=== PATIENT | male | born 1945 | race Caucasian/White ===

== ENCOUNTER → 2019-10-09 | Outpatient (CLI) | payer MEDICARE, OTHER ==
[~2019-10-09] MED LIST: ALBU8.5H2 IH; AMLO10TA82 PO; ASCO500T20 PO; ASP81CT PO; C250T PO; FURO40TA4 PO; GEMF600T3 PO; KCL10CCR PO; LVT.05T PO; METO25TA PO; MULT1CAP27 PO; PNT40TEC PO; RT-COMBINH IH; SIMV40TA4 PO; SIMV80TA3 PO; VITA400T9 PO
== END ==
LOC: WOUNDCARE 08:43
PROVIDERS: ATTEND Surgery
DX: E11.622 Type 2 diabetes mellitus with other skin ulcer (principal); L97.211 Non-pressure chronic ulcer of right calf limited to breakdown of skin; I87.331 Chronic venous hypertension (idiopathic) with ulcer and inflammation of right lower extremity; I70.232 Atherosclerosis of native arteries of right leg with ulceration of calf; T65.222A Toxic effect of tobacco cigarettes, intentional self-harm, initial encounter; F17.218 Nicotine dependence, cigarettes, with other nicotine-induced disorders; E66.01 Morbid (severe) obesity due to excess calories; Z79.01 Long term (current) use of anticoagulants; J44.9 Chronic obstructive pulmonary disease, unspecified; I10 Essential (primary) hypertension; E11.40 Type 2 diabetes mellitus with diabetic neuropathy, unspecified; Z92.3 Personal history of irradiation; Z86.718 Personal history of other venous thrombosis and embolism
CPT/HCPCS: 99203

== ENCOUNTER → 2019-10-17 | Outpatient (CLI) | payer MEDICARE, OTHER | LOC: WOUNDCARE 08:19 | PROVIDERS: ATTEND Surgery | DX: E11.622 Type 2 diabetes mellitus with other skin ulcer (principal); L97.211 Non-pressure chronic ulcer of right calf limited to breakdown of skin; I87.331 Chronic venous hypertension (idiopathic) with ulcer and inflammation of right lower extremity; I70.232 Atherosclerosis of native arteries of right leg with ulceration of calf; T65.222A Toxic effect of tobacco cigarettes, intentional self-harm, initial encounter; F17.218 Nicotine dependence, cigarettes, with other nicotine-induced disorders; E66.01 Morbid (severe) obesity due to excess calories; Z68.33 Body mass index [BMI] 33.0-33.9, adult | CPT/HCPCS: 99212 ==

== ENCOUNTER → 2019-12-07 | Outpatient (CLI) | payer MEDICARE, OTHER ==
[~2019-12-07] VITALS: Ht 172 cm; Wt 104.0 kg
[~2019-12-07] MED LIST changes: +CATHETER FLUSH 10 ML SYR IV PRN; +REGADENOSON 0.4 MG/5 ML SYR (LEXISCAN) IV ONE
[2019-12-07 12:17] VITALS: BP 166/86
--- NOTE | 2019-12-07 15:13 | Cardiology Stress Test Report ---
Stress Test Report Type of NM Stress Test: Test Type: LEXISCAN 0.4MG/5ML Date of Procedure/Referring: Date of Procedure: Dec 07, 2019 PCP Osvaldo Banuelos MD Admitting Physician Brittney Wolf MD Indications: Shortness of breath Baseline Heart Rate: 80 Baseline Blood Pressure: Blood Pressure Systolic: 166 Blood Pressure Diastolic: 86 Baseline EKG: Baseline EKG: Sinus rhythm Summary & Conclusion: Summary: The patient was brought to the stress lab after informed consent was taken. Stress test was performed according to the Lexiscan protocol. 0.4 mg of IV Lexiscan was given. Low-grade exercise was performed. Baseline EKG showed sinus rhythm at 80 BPM and blood pressure of 164/88 mmHg. Maximum heart rate of 91 bpm and blood pressure 161/90 mmHg. Patient did not have any chest pain, arrhythmias or ST segment changes during the stress test. 10.89 mCi of Myoview were given for rest imaging and 32.4 mCi of Myoview given for stress imaging. Transient ischemic dilatation score 1.04, EF 74 percent. Normal wall motion. Moderate size inferior/apical reversible defect. Conclusion: Pharmacological stress test was negative for ischemia. Normal LV function with no wall motion abnormalities. Likely inferior/apical ischemia. Coronary angiography is recommended. Osvaldo BANUELOS MD Dec 07, 2019 15:13
== END ==
LOC: CARD 10:46
PROVIDERS: ATTEND Internal Medicine Interventional Cardiology
DX: R06.02 Shortness of breath (principal); I10 Essential (primary) hypertension; L97.219 Non-pressure chronic ulcer of right calf with unspecified severity; E11.9 Type 2 diabetes mellitus without complications; E78.01 Familial hypercholesterolemia
CPT/HCPCS: 78452; 93017; A9502

== ENCOUNTER 2019-12-21 09:11 | Day surgery (SDC) | payer MEDICARE ==
[2019-12-21] VITALS (11 sets, daily range): BP systolic 132–159; BP diastolic 64–86
[~2019-12-21] VITALS: Ht 173 cm; Wt 102.0 kg
[~2019-12-21 09:11] MED LIST changes: -CATHETER FLUSH 10 ML SYR IV PRN; -REGADENOSON 0.4 MG/5 ML SYR (LEXISCAN) IV ONE
[2019-12-21] MEDS ORDERED: HEParin (CATH LAB) 2,000 ML IV ONE (09:24)
[2019-12-21] MEDS ORDERED: NS IV 1000 ML 1,000 ML ONE (09:24)
[2019-12-21] MEDS ORDERED: LIDOCAINE 1% INJ 20 ML 20 ML VIAL ONE (09:24)
[2019-12-21] MEDS ORDERED: NS IV 1000 ML 1,000 ML IV SCH ×2 (09:30→13:31)
[2019-12-21 09:42] LABS: HEMOGLOBIN 14.5 G/DL (13.3-17.7); MEAN PLATELET VOLUME 9.2 FL (7.4-10.4); RED CELL DISTRIBUTION WIDTH 16.7 % (10.0-14.5); WHITE BLOOD COUNT 10.5 10^3/uL (4.3-11.0)
[2019-12-21] MEDS ORDERED: ATOR20TA66 PO (09:52)
[2019-12-21] MEDS ORDERED: FURO20TA4 PO (09:52)
[2019-12-21] MEDS ORDERED: LEVO75TA6 PO (09:52)
[2019-12-21] MEDS ORDERED: GLIP5TAB13 PO (09:52)
[2019-12-21] MEDS ORDERED: METO50TA7 PO (09:52)
[2019-12-21] MEDS ORDERED: NICO-588 TD (09:52)
[2019-12-21] MEDS ORDERED: BUDE0.256 IH (09:52)
[2019-12-21] MEDS ORDERED: PANT40TA2 PO (09:52)
[2019-12-21] MEDS ORDERED: LOSA100T57 PO (09:52)
[2019-12-21] MEDS ORDERED: IPRA0.2S51 IH (09:52)
[2019-12-21] MEDS ORDERED: ARFO15VI3 IH (09:52)
[2019-12-21] MEDS ORDERED: METF-399 PO (09:52)
--- OUTSIDE RECORDS SUMMARY | 2019-12-21 09:54 | XMS REPORT | Continuity of Care Document ---
Author Organization Unknown Address Unknown Phone Unavailable Allergies Active Description Code Type Severity Reaction Onset Reported/Identified Relationship to Patient Clinical Status Yes Penicillins [id number] Drug Aller gy Unknown N/A 04/18/2012 Medications There is no data. Problems Date Dx Coded Attending Type Code Diagnosis Diagnosed By 09/20/2012 Ot 185 MALIGN NEOPL PROSTATE 09/20/2012 Ot V58.0 ENCO UNTER FOR RADIOTHERAPY 12/23/2017 Ot 272.4 HYPE RLIPIDEMIA NEC/NOS 12/23/2017 Ot 185 MALIGN NEOPL PROSTATE 12/23/2017 Ot V58.0 ENCO UNTER FOR RADIOTHERAPY 09/20/2019 W E03.4 Atro phy of thyroid (acquired) [facility] 09/20/2019 W E11.65 Typ e 2 diabetes mellitus with hyperglycemia, without long-term current use of insulin [facility] 09/20/2019 W E78.2 Mixe d hyperlipidemia [facility] 09/20/2019 W I10 Essent ial (primary) hypertension [facility] 09/20/2019 W L03.115 Ce llulitis of right leg without foot [facility] 09/28/2019 W E11.65 Typ e 2 diabetes mellitus with hyperglycemia, without long-term current use of insulin [facility] 09/28/2019 W L03.115 Ce llulitis of right leg without foot [facility] 09/28/2019 W R60.0 Loca lized edema [facility] 10/11/2019 ANUPAMA MODI MD Ot E11.40 TYPE 2 DIABETES MELLITUS WITH DIABETIC N 10/11/2019 ANUPAMA MODI MD Ot E11.622 TYPE 2 DIABETES MELLITUS WITH OTHER SKIN 10/11/2019 ANUPAMA MODI MD Ot E66.01 MORBID (SEVERE) OBESITY DUE TO EXCESS CA 10/11/2019 ANUPAMA MODI MD Ot F17.218 NICOTINE DEPENDENCE, CIGARETTES, W OTH D 10/11/2019 ANUPAMA MODI MD Ot I10 ESSENTIAL (PRIMARY) HYPERTENSION 10/11/2019 ANUPAMA MODI MD, Ot I70.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 W UL 10/11/2019 ANUPAMA MODI MD, Ot I87.331 CHRONIC VENOUS HTN W ULCER AND INFLAMMAT 10/11/2019 ANUPAMA MODI MD, Ot J44 .9 CHRONIC OBSTRUCTIVE PULMONARY DISEASE, U 10/11/2019 ANUPAMA MODI MD, Ot L97.211 NON-PRS CHRONIC ULCER OF RIGHT CALF LIMI 10/11/2019 ANUPAMA MODI MD, Ot T65.222A TOXIC EFFECT OF TOBACCO CIGARETTES, SELF 10/11/2019 ANUPAMA MODI MD, Ot 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 10/11/2019 ANUPAMA MODI MD, Ot Z86.718 PERSONAL HISTORY OF OTHER VENOUS THROMBO 10/11/2019 ANUPAMA MODI MD, Ot Z92 .3 PERSONAL HISTORY OF IRRADIATION 10/19/2019 W E11.65 Typ e 2 diabetes mellitus with hyperglycemia, without long-term current use of insulin [facility] 10/19/2019 W I10 Essent ial (primary) hypertension [facility] 10/19/2019 W J44.9 COPD (chronic obstructive pulmonary disease) [facility] 10/19/2019 W R60.0 Loca lized edema [facility] 11/01/2019 ANUPAMA MODI MD Ot E11.40 TYPE 2 DIABETES MELLITUS WITH DIABETIC N 11/01/2019 ANUPAMA MODI MD, Ot E11.622 TYPE 2 DIABETES MELLITUS WITH OTHER SKIN 11/01/2019 ANUPAMA MODI MD, Ot E66.01 MORBID (SEVERE) OBESITY DUE TO EXCESS CA 11/01/2019 ANUPAMA MODI MD, Ot F17.218 NICOTINE DEPENDENCE, CIGARETTES, W OTH D 11/01/2019 ANUPAMA MODI MD, Ot I10 ESSENTIAL (PRIMARY) HYPERTENSION 11/01/2019 ANUPAMA MODI MD, Ot I70.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 W UL 11/01/2019 ANUPAMA MODI MD, Ot I87.331 CHRONIC VENOUS HTN W ULCER AND INFLAMMAT 11/01/2019 ANUPAMA MODI MD, Ot J44 .9 CHRONIC OBSTRUCTIVE PULMONARY DISEASE, U 11/01/2019 ANUPAMA MODI MD, Ot L97.211 NON-PRS CHRONIC ULCER OF RIGHT CALF LIMI 11/01/2019 ANUPAMA MODI MD, Ot T65.222A TOXIC EFFECT OF TOBACCO CIGARETTES, SELF 11/01/2019 ANUPAMA MODI MD, Ot Z79.01 SHELTER (CURRENT) USE OF ANTICOAGULANT 11/01/2019 ANUPAMA MODI MD, Ot Z86.718 PERSONAL HISTORY OF OTHER VENOUS THROMBO 11/01/2019 ANUPAMA MODI MD, Ot Z92 .3 PERSONAL HISTORY OF IRRADIATION 11/13/2019 ANUPAMA MODI MD, Ot E11.622 TYPE 2 DIABETES MELLITUS WITH OTHER SKIN 11/13/2019 ANUPAMA MODI MD, Ot E66.01 MORBID (SEVERE) OBESITY DUE TO EXCESS CA 11/13/2019 ANUPAMA MODI MD, Ot F17.218 NICOTINE DEPENDENCE, CIGARETTES, W OTH D 11/13/2019 ANUPAMA MODI MD, Ot I70.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 W UL 11/13/2019 ANUPAMA MODI MD, Ot I87.331 CHRONIC VENOUS HTN W ULCER AND INFLAMMAT 11/13/2019 ANUPAMA MODI MD, Ot L97.211 NON-PRS CHRONIC ULCER OF RIGHT CALF LIMI 11/13/2019 ANUPAMA MODI MD, Ot T65.222A TOXIC EFFECT OF TOBACCO CIGARETTES, SELF 11/13/2019 ANUPAMA MODI MD, Ot Z68.33 BODY MASS INDEX (BMI) 33.0-33.9, ADULT 12/11/2019 Osvaldo BOWMAN MD Ot E11 .9 TYPE 2 DIABETES MELLITUS WITHOUT COMPLIC 12/11/2019 Osvaldo BOWMAN MD, Ot E78.01 FAMILIAL HYPERCHOLESTEROLEMIA 12/11/2019 Osvaldo BOWMAN MD Ot I10 ESSENTIAL (PRIMARY) HYPERTENSION 12/11/2019 Osvaldo BOWMAN MD, Ot L97.219 NON-PRESSURE CHRONIC ULCER OF RIGHT CALF 12/11/2019 Osvaldo BOWMAN MD, Ot R06.02 SHORTNESS OF BREATH Procedures There is no data. Results There is no data. Encounters ACCT No. Visit Date/Time Discharge Status Pt. Type Provider Facility Loc./Unit Complaint [id number] 03/15/2019 10:14:35 03/15/2019 23:59:5 9 CLS Outpatient [id number] 12/07/2019 10:46:00 020 23:59:59 CLS Outpatient Osvaldo BOWMAN MD [facility] CARD SOB [id number] 10/17/2019 08:19:00 23:59:59 CLS Outpatient ANUPAMA MODI MD [facility] WOUNDCARE [id number] 10/09/2019 08:43:00 23:59:59 CLS Outpatient ANUPAMA MODI MD [id number] 12/21/2019 09:11:[address] Outpatient Osvaldo BOWMAN MD [facility] [id number] 10/05/2019 08:33:00 Document Registration [id number] 09/21/2012 10:21:00 Document Registration [id number] 08/15/2012 08:44:00 Document Registration [id number] 08/08/2012 09:06:00 Document Registration
[2019-12-21 09:57] LABS: INR 0.9 (0.8-1.4); PROTHROMBIN TIME PATIENT 12.7 SEC (12.2-14.7)
[2019-12-21 10:03] LABS: ALBUMIN 4.2 GM/DL (3.2-4.5); BILIRUBIN,TOTAL 0.5 MG/DL (0.1-1.0); CALCIUM 9.2 MG/DL (8.5-10.1); CREATININE SERUM 1.38 MG/DL (0.60-1.30); POTASSIUM 3.8 MMOL/L (3.6-5.0); TOTAL PROTEIN 7.2 GM/DL (6.4-8.2)
[2019-12-21] MEDS ORDERED: MIDAZOLAM 5 MG/5 ML (VERSED) VIAL ONE (12:39)
[2019-12-21] MEDS ORDERED: VERAPAMIL 5 MG/2 ML (CALAN) VIAL IV ONE (12:40)
[2019-12-21] MEDS ORDERED: fentaNYL INJECTION 100 MCG/2 ML AMP ONE (12:40)
[2019-12-21] MEDS ORDERED: NITRO DRIP 25000 MCG/D5W 250 ML IV ONE (12:40)
[2019-12-21] MEDS ORDERED: HEParin 1000 UNIT/ML (10ML VIAL) FOR BOLUS ONE (12:40)
--- NOTE | 2019-12-21 13:29 | Cardiac Procedure Note-CS/ASA ---
Pre-Procedure Note Pre-Op Procedure Note H&P Reviewed The H&P was reviewed, patient examined and no changes noted. Date H&P Reviewed: Dec 21, 2019 Time H&P Reviewed: 12:00 Conscious Sedation Pre-Proced Time 12:00 ASA Score 3 For ASA 3 and 4: Consider anesthesia and medical clearance. Also, for patients with a history of failed moderate sedation consider anesthesia. Airway Lungs Heart ASA score ASA 1: a normal healthy patient ASA 2: a patient with a mild systemic disease (mid diabetes, controlled hypertension, obesity ASA 3: a patient with a severe systemic disease that limits activity (angina, COPD, prior Myocardial infarction) ASA 4: a patient with an incapacitating disease that is a constant threat to life (CHF, renal failure) ASA 5: a moribund patient not expected to survive 24 hrs. (ruptured aneurysm) ASA 6: a declared brain- patient whose organs are being harvested. For emergent operations, add the letter E after the classification Mallampati Classification Grade 1 Sedation Plan Analgesia, Amnesia, Plan communicated to team members, Discussed options with patient/fam, Discussed risks with patient/fam The patient is an appropriate candidate to undergo the planned procedure, sedation, and anesthesia. The patient immediately re-assessed prior to indication. Osvaldo BOWMAN MD Dec 21, 2019 13:29
--- NOTE | 2019-12-21 13:31 | Coronary Angiography Report ---
Coronary Angiography Report DATE OF PROCEDURE: 12/21/19 INDICATION: Chest pain, abnormal nuclear stress test. PREOPERATIVE DIAGNOSIS: Chest pain, abnormal nuclear stress test. POSTOPERATIVE DIAGNOSIS: Patent epicardial coronary arteries. HISTORY: This is a 74-year-old gentleman with chest pain and abnormal nuclear stress test. Therefore, the patient was scheduled for coronary angiography. PROCEDURES PERFORMED: 1.Coronary angiography. 2.Left heart catheterization. 3. Aortic arch angiogram: Medical necessity: To rule out aortic aneurysm or dissection in a patient with chest pain and patent epicardial coronary arteries. COMPLICATIONS: None. SPECIMENS: None. ESTIMATED BLOOD LOSS: 10 mL ANESTHESIA: Conscious sedation ANTICOAGULATION: IV heparin CONTRAST: 68 mL. FLUOROSCOPY: 3.7 minutes. FLOUROSCOPY DOSE: 513 mgy. 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 All the risks and complications were explained in detail; this included the risk of bleeding, vascular damage, stroke, [place] and even . The patient was draped and prepped in the usual sterile fashion. Access was gained in the right radial artery with a 6 Bengali sheath. Coronary angiography and left heart catheterization was performed with the Matheny catheter. FINDINGS: 1.Left main: Patent. 2.LAD: Patent. 3.Left circumflex artery: Patent. 4.RCA: Patent. 5.Left heart catheterization: LV pressure 119/11 mmHg. LVEDP 18 mmHg. Aortic pressure 130/75 mmHg. Normal LV function with no wall motion abnormalities. No gradient across the aortic valve. 6. Aortic arch angiogram: No evidence of aneurysm or dissection. Patent proximal segments of the great arteries. CONCLUSIONS: Patent epicardial coronary arteries. Elevated LVEDP suggest diastolic dysfunction. Continue primary prevention measures. Opal Banuelos MD, FACP, FACC, [facility] Interventional Cardiology Osvaldo BANUELOS MD Dec 21, 2019 13:31
--- NOTE | 2019-12-21 13:34 | Discharge Inst-Post CATH ---
Discharge Inst-CATH/EP Problems Reviewed?: Yes Final Diagnosis Patent epicardial coronary arteries. Post Cardiac Cath/EP D/C Inst Follow Up/Plan Dr. Banuelos in 4 weeks. <b>CARDIAC CATH/EP PROCEDURE DISCHARGE INSTRUCTIONS</b> ACTIVITY * Go Home directly and rest. * Limit activity of the leg (or wrist if it was used) for 7 days including aerobics, swimming, jogging, bicycling, etc. * Restrict stair-climbing for 7 days if possible, if not, climb up with your non-cath leg, then bring together on the same step. * Avoid lifting, pushing, pulling or excessive movement of the affected extremity for 7 days. * Customary sexual activity may be resumed after 2 days-use caution not to use a position that strains or causes pain to the affected extremity. * No driving for 24 hours. * NO SMOKING. * Avoid straining for bowel movements for 7 days. * Gentle walking on level ground is allowed. * Returning to work will depend on the type of procedure and the results. Your doctor will discuss this with you. CALL YOUR DOCTOR FOR ANY OF THE FOLLOWING: *If bleeding from the puncture site occurs- Apply gentle pressure to site with clean cloth and call your doctor or EMS. * If a knot or lump forms under the skin, increases in size, or causes pain. * If bruising appears to be worsening or moving further down your leg instead of disappearing. * Temperature above 101 F. CARE OF YOUR GROIN INCISION; * Bruising or purple discoloration of the skin near the puncture site is common. * You may shower only, no bathtub bathing for 5 days. Be careful to avoid slipp ing as your leg may feel stiff. * If a closure device was used on your femoral artery, please see the attached guide regarding care of the device and your leg. * Leave dressing on FOR 24 hours. CARE OF YOUR WRIST INCISION; * Bruising or purple discoloration of the skin near the puncture site is common. * You may shower. * DO NOT submerge wrist. * Leave dressing on FOR 24 hours. Osvaldo BANUELOS MD Dec 21, 2019 13:34
--- NOTE | 2019-12-21 13:36 | Cardiology Discharge Summary ---
Diagnosis/Chief Complaint Date of Admission Date of Discharge 12/21/2019 Admission Diagnosis Chest pain, abnormal nuclear stress test. Final/Discharge Diagnosis Patent epicardial coronary arteries. Chief Complaint/HPI Chief Complaint/HPI 74-year-old gentleman with diabetes. Chest pain, abnormal nuclear stress test. Discharge Summary Procedures Coronary angiography showed patent epicardial coronary arteries. Normal LV function with mild diastolic dysfunction. Discharge Physical Examination Normal cardiovascular examination. Hospital Course Was the Problem List Reviewed?: Yes Unremarkable. Pending Labs Laboratory Tests 12/21/19 09:35: White Blood Count 10.5, Red Blood Count 5.30, Hemoglobin 14.5, Hematocrit 45, Mean Corpuscular Volume 85, Mean Corpuscular Hemoglobin 27, Mean Corpuscular Hemoglobin Concent 32, Red Cell Distribution Width 16.7, Platelet Count 256, Mean Platelet Volume 9.2, Prothrombin Time 12.7, INR Comment 0.9, Activated Partial Thromboplast Time 30, Sodium Level 142, Potassium Level 3.8, Chloride Level 104, Carbon Dioxide Level 26, Anion Gap 12, Blood Urea Nitrogen 17, Creatinine 1.38, Estimat Glomerular Filtration Rate 51, BUN/Creatinine Ratio 12, Glucose Level 140, Calcium Level 9.2, Corrected Calcium 9.0, Total Bilirubin 0.5, Aspartate Amino Transf (AST/SGOT) 29, Alanine Aminotransferase (ALT/SGPT) 27, Alkaline Phosphatase 83, Total Protein 7.2, Albumin 4.2 Discussion & Recommendations Discussion Discussed with the patient. Follow up appt.: Dr. Banuelos in 4 weeks. Dicharge Diet: Cardiac Diet Activity as Tolerated: Yes Home Medications Reviewed patient Home Medication Reconciliation performed by pharmacy medication reconciliations cardiac monitor technician and/or nursing. Patients Allergies have been reviewed. Discharge Home Medications: Reviewed and agree with Discharge Medication list on patient's Discharge Instruction sheet Condition at discharge Stable. Instructions to patient/family Dr. Banuelos in 4 weeks. Osvaldo BANUELOS MD Dec 21, 2019 13:36
[2019-12-21] MEDS ORDERED: PATIENT MAY USE OWN MEDS, ALL PO SCH (13:45)
--- NOTE | 2019-12-21 13:52 | NUR ---
PT ARRIVED VIA PT BED TO ICU-11. PT SITTING UP IN BED UPON ARRIVAL WITH VASCBAND INTACT TO RIGHT WRIST. IV INTACT AND PATENT. PT DOES NOT C/O ANY CHEST PAIN, LIGHTHEADEDNESS, OR DIZZINESS.
--- NOTE | 2019-12-21 16:54 | NUR ---
VASCBAND REMOVED FROM RT RADIAL ARTERY AT THIS TIME. 2X2 AND 2" BANDAID APPLIED. WILL RECHECK SITE IN 15MINUTES.
--- NOTE | 2019-12-21 18:04 | NUR ---
KEVON ZACHARY Lopez demonstrates understanding of discharge instructions and accurately returns instructions upon questioning. Copy of Post-Discharge Instructions given to PATIENT. KEVON ZACHARY Jessica GARDUNO is. Patients belongings returned to PATIENT. Patient discharged from [facility] on 12/21/2019 at 1804. KEVON ZACHARY Jessica GARDUNO left floor via WHEELCHAIR, accompanied by BLANCA BARNES. THIS RN INSTRUCTED PATIENT TO MAKE A FOLLOW UP APPOINTMENT WITH DR. BOWMAN.
== END 2019-12-21 18:17 | disposition home or self-care (01) ==
LOC: CATH 09:11 → ICU 13:54 → CATH 18:17
PROVIDERS: ATTEND Internal Medicine Interventional Cardiology
DX: R07.9 Chest pain, unspecified (principal); R94.39 Abnormal result of other cardiovascular function study; I10 Essential (primary) hypertension; E78.01 Familial hypercholesterolemia; F17.210 Nicotine dependence, cigarettes, uncomplicated; R09.89 Other specified symptoms and signs involving the circulatory and respiratory systems; J44.9 Chronic obstructive pulmonary disease, unspecified; E11.622 Type 2 diabetes mellitus with other skin ulcer; L97.919 Non-pressure chronic ulcer of unspecified part of right lower leg with unspecified severity; Z79.84 Long term (current) use of oral hypoglycemic drugs; Z79.899 Other long term (current) drug therapy; Z79.82 Long term (current) use of aspirin; Z88.0 Allergy status to penicillin; Z11.2 Encounter for screening for other bacterial diseases
CPT/HCPCS: 36221; 80053; 85027; 85610; 85730; 87081; 93458; C1894; 36415

== ENCOUNTER 2020-04-18 10:30 | Outpatient (CLI) | payer MEDICARE, OTHER ==
[2020-04-18 10:15] LABS: ABG BASE EXCESS 4.4 MMOL/L (-2.5-2.5); ABG OXYGEN SATURATION 94 % (94-100); ABG PCO2 47 MMHG (35-45); ABG PH 7.41 (7.37-7.43); ABG PO2 71 MMHG (79-93); ABG TCO2 30.5 MMOL/L (21.0-31.0)
[2020-04-18 10:16] LABS: ALLENS TEST YES-POS; INSPIRED O2 2 L; PATIENT TEMP 36.4; VENTILATOR NO
[~2020-04-18 10:30] MED LIST changes: +ARFO15VI3 IH; +ATOR20TA66 PO; +BUDE0.256 IH; +FURO20TA4 PO; +GLIP5TAB13 PO; +IPRA0.2S51 IH; +LEVO75TA6 PO; +LOSA100T57 PO; +METF-399 PO; +METO50TA7 PO; +NICO-588 TD; +PANT40TA2 PO; +RT-ALBUTEROL SULF 2.5 MG/3 ML PRE-MIX VIAL INH ONE
[2020-04-18 11:22] LABS: CREATININE SERUM 1.37 MG/DL (0.60-1.30)
[2020-04-18] MEDS ORDERED: HOLD METFORMIN - RECEIVED CONTRAST 20 ML VIAL IV SCH (11:30)
[2020-04-18] MEDS ORDERED: IOHEXOL 350 MG/ML 100 ML (OMNIPAQUE 350) VIAL IV ONE (11:30)
[2020-04-18] MEDS ORDERED: CATHETER FLUSH 10 ML SYR IV PRN (11:30)
[2020-04-18] MEDS ORDERED: NS 100 ML (IVPB) BAG IV ONE (11:30)
--- NOTE | 2020-04-18 12:11 | Diagnostic Imaging Report ---
EXAMINATION: CT Chest with intravenous contrast. TECHNIQUE: Multiple contiguous axial images were obtained through the chest after the uneventful administration of intravenous contrast. All CT scans use one or more of the following dose optimizing techniques: automated exposure control, MA and/or KvP adjustment based on a patient size and exam type, or iterative reconstruction. HISTORY: Shortness of breath. COMPARISON: 04/19/2012 FINDINGS: There is no edema or pneumonia. No pleural effusion. No pneumothorax. No suspicious nodules. Lungs are moderately emphysematous. There is mild lingular and right lower lobe atelectasis. There is no axillary or supraclavicular lymphadenopathy. There is no mediastinal lymphadenopathy. Heart size is normal. There are no coronary artery calcifications. No pericardial effusion. Aorta is normal in caliber. Limited views of the upper abdomen show a stable 2.0 cm left adrenal nodule consistent with an adenoma on prior exam. Simple cysts are present in the kidneys. There are no suspicious osseus lesions. IMPRESSION: 1. Moderate emphysema without acute abnormality. Dictated by: Dictated on workstation # [id number]
== END 2020-04-18 12:25 | disposition home or self-care (01) ==
LOC: RAD 10:30
PROVIDERS: ATTEND Nurse Practitioner Family
DX: J43.9 Emphysema, unspecified (principal); G47.10 Hypersomnia, unspecified; Z72.0 Tobacco use
CPT/HCPCS: 36600; 71260; 82565; 82805; 84520; 94060; 94726; 94729; G0399; 36415

== ENCOUNTER → 2021-04-21 | Outpatient (CLI) | payer MEDICARE, OTHER ==
[~2021-04-21] MED LIST changes: -NICO-588 TD; +NICO-685 TD; -RT-ALBUTEROL SULF 2.5 MG/3 ML PRE-MIX VIAL INH ONE
--- NOTE | 2021-04-21 13:39 | Diagnostic Imaging Report ---
EXAMINATION: CT Lung Screening. INDICATION: Current smoker with 57 pack year history. He presents for low-dose CT screening. TECHNIQUE: Noncontrast, low-dose CT imaging performed according to the lung cancer screening protocol. Auto Exposure Controls were utilize during the CT exam to meet ALARA standards for radiation dose reduction. COMPARISON: Routine contrasted chest CT of 04/18/2020. FINDINGS: Pulmonary emphysema is a redemonstrated finding and not clearly changed from the prior exam. No dominant or suspicious lung mass is identified. A juxtapleural granuloma is calcified and benign in the left upper lobe, stable. No noncalcified or suspicious chest lesion. No lymphadenopathy. The aorta is nonaneurysmal. There is no pleural or pericardial effusion. No acute soft tissue or osseous chest wall pathology. No features of pulmonary edema or pneumonia. Trace right middle lobe and juxta-fissural lingular segmental partial atelectasis, similar to the previous exam. There is minimal subsegmental atelectasis of the dependent right lower lobe at the posterior sulcus, similar. The upper abdomen shows a stable low-density left adrenal nodule believed adenomatous and a partially visualized renal cyst, chronic. IMPRESSION: No evidence for active lung cancer. A low-dose CT screening followup in 1 year is recommended. LUNG-RADS CATEGORY:Category 1. MODIFIER:None. OTHER SIGNIFICANT FINDINGS:Moderate pulmonary emphysema, partially visualized renal cyst, and a stable presumed benign left adrenal nodule are unchanged from prior exams. No acute finding. Dictated by: Dictated on workstation # [id number]
== END ==
LOC: RAD 12:15
PROVIDERS: ATTEND Nurse Practitioner Family
DX: Z12.2 Encounter for screening for malignant neoplasm of respiratory organs (principal); J43.9 Emphysema, unspecified; N28.1 Cyst of kidney, acquired; E27.8 Other specified disorders of adrenal gland; F17.210 Nicotine dependence, cigarettes, uncomplicated
CPT/HCPCS: 71271

== ENCOUNTER → 2022-05-14 | Outpatient (CLI) | payer MEDICARE, OTHER ==
--- NOTE | 2022-05-14 17:09 | Diagnostic Imaging Report ---
EXAMINATION: CT chest without contrast (lung screening). TECHNIQUE: Multiple contiguous axial images were obtained through the chest without the use of intravenous contrast according to lung cancer screening protocol. All CT scans use one or more of the following dose optimizing techniques: automated exposure control, MA and/or KvP adjustment based on patient size and exam type or iterative reconstruction. HISTORY: 60 pack year history of smoking. COMPARISON: 04/21/2021. FINDINGS: There is no edema or pneumonia. No pleural effusion. No pneumothorax. No suspicious nodule. Lungs are moderately emphysematous. There is no axillary or supraclavicular lymphadenopathy. There is no mediastinal lymphadenopathy. Heart size is normal. There are mild coronary artery calcifications. No pericardial effusion. Aorta is normal in caliber. Limited views of the upper abdomen show an unchanged left adrenal nodule and cyst in the upper pole of the right kidney. There are no suspicious osseus lesions. IMPRESSION: No suspicious pulmonary nodules. LUNG-RADS CATEGORY: 1 MODIFIER: None. Dictated by: Dictated on workstation # [id number]
== END ==
LOC: RAD 11:10
PROVIDERS: ATTEND Family Medicine
DX: Z12.2 Encounter for screening for malignant neoplasm of respiratory organs (principal); F17.210 Nicotine dependence, cigarettes, uncomplicated
CPT/HCPCS: 71271